=== PATIENT | male | born 1960 | race Caucasian/White ===

== ENCOUNTER 2020-08-22 16:00 | Outpatient (RCR) | payer OTHER ==
[~2020-08-22 16:00] MED LIST: DIOVAN HCT 1601 EAC1 PO
== END 2020-08-25 ==
LOC: PT 16:00
PROVIDERS: ATTEND Neurological Surgery
DX: M47.14 Other spondylosis with myelopathy, thoracic region (principal); M62.81 Muscle weakness (generalized); R26.9 Unspecified abnormalities of gait and mobility

== ENCOUNTER 2020-08-29 16:00 | Outpatient (RCR) | payer OTHER | END 2020-09-24 | LOC: PT 16:00 | PROVIDERS: ATTEND Neurological Surgery | DX: M47.14 Other spondylosis with myelopathy, thoracic region (principal); M62.81 Muscle weakness (generalized); R26.9 Unspecified abnormalities of gait and mobility | CPT/HCPCS: 97139 ==

== ENCOUNTER 2023-02-12 10:10 | Emergency (ER) | payer BC, OTHER ==
[~2023-02-12] VITALS: Ht 175.3 cm; Wt 95.3 kg
[2023-02-12] MEDS ORDERED: Morphine 4mg INJECTION 4 MG/ML INJ IV STA (10:47)
[2023-02-12] MEDS ORDERED: ONDANSETRON HCL INJ 2MG/ML 2ML 2 MG/ML VIAL IV STA (10:47)
[2023-02-12] MEDS ORDERED: SODIUM CHLORIDE 0.9% 1000ML 1,000 ML IV STA (10:47)
[2023-02-12 11:18] LABS: BASOPHILS # (AUTO) 0.1 (0.0-0.1); BASOPHILS % 1.1 % (0.0-1.0); EOSINOPHILS # (AUTO) 0.1 (0.0-0.4); EOSINOPHILS % 0.9 % (0.0-6.0); HEMATOCRIT 51.6 % (38.2-49.6); HEMOGLOBIN 18.2 g/dL (14.0-18.0); LYMPHOCYTES # (AUTO) 1.8 (1.0-3.2); LYMPHOCYTES % 22.3 % (18.0-39.1); MEAN CORPUSCULAR HEMOGLOBIN 32.7 pg (28-32); MEAN CORPUSCULAR HGB CONC 35.3 g/dL (31-35); MEAN CORPUSCULAR VOLUME 92.6 fL (81-99); MONOCYTES # (AUTO) 0.9 (0.2-0.8); MONOCYTES % 10.9 % (4.4-11.3); NEUTROPHILS # (AUTO) 5.1 (2.1-6.9); PLATELET COUNT 279 x10e3/uL (140-360); RED BLOOD COUNT 5.57 x10e6/uL (4.3-5.7)
[2023-02-12 11:29] LABS: INR 0.92; PARTIAL THROMBOPLASTIN TIME 24.7 seconds (23.8-35.5); PROTHROMBIN TIME 12.9 seconds (11.9-14.5)
[2023-02-12 11:37] LABS: ALANINE AMINOTRANSFERASE 30 IU/L (0-55); ALBUMIN 3.9 g/dL (3.5-5.0); ALBUMIN/GLOBULIN RATIO 1.2 (0.8-2.0); ALKALINE PHOSPHATASE 49 IU/L (40-150); ANION GAP 14.8 mmol/L (8-16); BLOOD UREA NITROGEN 16 mg/dL (7-26); BUN/CREATININE RATIO 14 (6-25); CALCIUM 9.6 mg/dL (8.4-10.2); CARBON DIOXIDE 27 mmol/L (22-29); CHLORIDE 103 mmol/L (98-107); CREATINE KINASE 112 IU/L (30-200); CREATININE, SERUM 1.17 mg/dL (0.72-1.25); GLUCOSE 100 mg/dL (74-118); LIPASE 33 U/L (8-78); POTASSIUM 3.8 mmol/L (3.5-5.1); SODIUM 141 mmol/L (136-145)
[2023-02-12] MEDS ORDERED: IOPAMIDOL 370 MG/ML 100 ML INFUS..BTL INJ ONE (11:48)
[2023-02-12] MEDS ORDERED: SODIUM CHLORIDE 0.9% 100 ML ONE (11:48)
[2023-02-12] MEDS ORDERED: HYDROMORPHONE 1MG/1ML INJ IV STA ×2 (12:00→14:03)
[2023-02-12] MEDS ORDERED: KETOROLAC TROMETHAMINE 30 MG/ML VIAL IV STA (14:27)
[2023-02-12] MEDS ORDERED: DIAZEPAM 5 MG TAB PO ONE (14:30)
[2023-02-12 14:40] LABS: CLARITY,URINE SL CLOUDY (CLEAR); COLOR,URINE YELLOW (YELLOW); KETONES,URINE TRACE (NEGATIVE); LEUKOCYTE ESTERASE ,URINE NEGATIVE (NEGATIVE); NITRITE,URINE NEGATIVE (NEGATIVE); PROTEIN,URINE DIPSTICK 2+ (NEGATIVE); URINE UROBILINOGEN 0.2 mg/dL (0.2 - 1)
[2023-02-12 14:48] LABS: EPITHELIAL CELLS,URINE RARE /LPF
[2023-02-12] MEDS ORDERED: METHYLPREDNISOLONE SOD SUCC 125 MG/2ML VIAL IV STA (14:55)
[2023-02-12] MEDS ORDERED: CELEBREX100 MG PO (15:17)
[2023-02-12] MEDS ORDERED: MEDROL4 M2 PO (15:17)
[2023-02-12] MEDS ORDERED: VALIUM5 MG PO (15:17)
[2023-02-12 15:28] VITALS: BP 120/72
== END 2023-02-12 15:26 | disposition home or self-care (01) ==
LOC: ER 10:20
DX: M54.50 Low back pain, unspecified (principal); G58.8 Other specified mononeuropathies; R20.0 Anesthesia of skin; I10 Essential (primary) hypertension; E78.5 Hyperlipidemia, unspecified
CPT/HCPCS: 36415; 71045; 71275; 74174; 80053; 81001; 82550; 82553; 83690; 84484; 85025; 85610; 85730; 87086; 93005; 99284; C9113; J1170; J1885; J2270; J2405; J2930; J7030; J7050; Q9967